=== PATIENT | female | born 1985 | race Caucasian/White ===

== ENCOUNTER 2018-09-17 05:30 | Inpatient (IN) | payer OTHER ==
[2018-09-17] MEDS ORDERED: Carboprost 250 MCG/ML AMP IM PRN (09:03)
[2018-09-17] MEDS ORDERED: Lidocaine 1% (PF) 30 ML VIAL SC PRN (09:03)
[2018-09-17] MEDS ORDERED: Butorphanol Tartrate 1 MG/ML VIAL SLOW IVP PRN (09:03)
[2018-09-17] MEDS ORDERED: Ibuprofen 800 MG TAB PO PRN (09:03)
[2018-09-17] MEDS ORDERED: HYDROcodone/Acetaminophen 5/325 mg Tablet PO PRN ×2 (09:03→16:52)
[2018-09-17] MEDS ORDERED: Ondansetron PF 4 MG/2 ML Vial IVP PRN (09:03)
[2018-09-17] MEDS ORDERED: Misoprostol 200 MCG TAB PR PRN (09:03)
[2018-09-17] MEDS ORDERED: Promethazine HCl 25 MG/ML VIAL IM PRN (09:03)
[2018-09-17] MEDS ORDERED: Acetaminophen 500 MG TAB PO PRN (09:03)
[2018-09-17] MEDS ORDERED: Methylergonovine 0.2 MG/ML VIAL IM PRN (09:03)
[2018-09-17] MEDS ORDERED: Meperidine HCl/PF 25 MG/ML VIAL IM/IV PRN (09:03)
[2018-09-17 09:11] VITALS: BMI 28.7
--- NOTE | 2018-09-17 09:12 | PDOC.LDHP ---
Labor and Delivery H&P Chief complaint: scheduled induction HPI: at 39+ weeks for IOL. Cervix favorable. Pt requested IOL today. Current gestational age (weeks): 40 Dating criteria: last menstrual period, first trimester ultrasound Grav: 6 Para: 4 Current complications: none Abnormal US findings: No Past Medical History: None Current medications: pre-kermit vitamins Previous surgical history: none Social history: none - Physical Exam Vital signs reviewed and normal: yes General: NAD, resting, breathing through contractions, other Heart: RRR Lungs: CTAB Abdomen: gravid Extremeties: no edema FHT: category 1 - Vaginal Exam cm dilated: 4 Effacement: 75% Station: -1 - OB Labs Blood type: O RH: positive Antibody Screen: negative HIV: negative RPR: negative HEPSAg: negative 1 hour GCT: negative GBS: negative Urine drug screen: not done Rubella: immune - Assessment L&D Assessment: medically indicated induction (Postdates ) - Plan Plan: admit to L&D (Pitocin for IOL. May consider AROM if slow response to pitocin. Anticipate .)
[2018-09-17] MEDS ORDERED: Lactated Ringer's 1,000 ML IV SCH (09:15)
[2018-09-17] MEDS ORDERED: NS w/ Oxytocin 10 units 500 ML IV SCH (09:15)
[2018-09-17 09:34] LABS: Hemoglobin 12.6 g/dL (12.0-16.0); Mean Corpuscular HGB CONC 34.9 g/dL (32.0-36.0); Mean Corpuscular Hemoglobin 32.2 pg (27.0-31.0); Mean Corpuscular Volume 92.3 fL (78.0-98.0); Mean Platelet Volume 10.1 fL (7.4-10.4); Platelet Count 157 thou/uL (130-400); RBC Distribution Width 12.4 % (11.5-14.5); White Blood Cell (WBC) Count 11.1 thou/uL (4.8-10.8)
[2018-09-17 10:17] LABS: HBSAg Index 0.35 S/CO (0-0.99); Hep B Surf Ag Non-Reactive S/CO (NonReactive); Syphilis Antibody Nonreactive (Nonreactive); Syphilis Antibody Index 0.03 S/CO (<1.00 Non-Reactive)
[2018-09-17] MEDS: NS / Oxytocin 40 units/1000ml 1,000 ML IV PRN ×2 (12:39→15:21)
[2018-09-17] MEDS ORDERED: Lanolin Ointment 7 GM TUBE TOP PRN (16:52)
[2018-09-17] MEDS ORDERED: Adacel (T-DAP) 0.5 ML SYRINGE IM ONE (16:52)
[2018-09-17] MEDS ORDERED: NS / Oxytocin 40 units/1000ml 1,000 ML IV SCH (16:52)
[2018-09-17] MEDS ORDERED: Bisacodyl 10 MG SUPP PR PRN (16:52)
[2018-09-17] MEDS ORDERED: Milk Of Magnesia 30 ML UDCUP PO PRN (16:52)
[2018-09-17] MEDS ORDERED: Benzocaine-Menthol 82.5 ML CAN TOP PRN (16:52)
[2018-09-17] MEDS: Ferrous Sulfate 325 MG TAB PO SCH (17:33)
[2018-09-17] MEDS: Ibuprofen 800 MG TAB PO SCH ×2 (17:33→21:27)
[2018-09-17] MEDS: Docusate Calcium (SURFAK) 240 MG CAP PO SCH (21:27)
[2018-09-18] MEDS: Ibuprofen 800 MG TAB PO SCH ×2 (05:37→13:26)
[2018-09-18] MEDS: Docusate Calcium (SURFAK) 240 MG CAP PO SCH (09:39)
[2018-09-18] MEDS: Ferrous Sulfate 325 MG TAB PO SCH (09:40)
[2018-09-18 12:29] VITALS: BP 113/68; TEMP 98.2
== END 2018-09-18 15:33 | disposition home or self-care (01) | DRG 807 ==
LOC: L&D 08:57 → 3SW 17:26
PROVIDERS: ADMIT Family Medicine; ATTEND Family Medicine
PROC: 10E0XZZ Delivery of Products of Conception, External Approach (ICD-10-PCS; principal; 2018-09-17)
PROC: 10907ZC Drainage of Amniotic Fluid, Therapeutic from Products of Conception, Via Natural or Artificial Opening (ICD-10-PCS; 2018-09-17)
PROC: 3E033VJ Introduction of Other Hormone into Peripheral Vein, Percutaneous Approach (ICD-10-PCS; 2018-09-17)
DX: O48.0 Post-term pregnancy (principal); Z37.0 Single live birth; Z3A.40 40 weeks gestation of pregnancy
CPT/HCPCS: 36415; 85027; 86780; 86850; 86900; 86901; 87340; 90715; J2001; J2405